=== PATIENT | female | born 1995 | race Caucasian/White ===

== ENCOUNTER 2017-05-30 16:05 | Emergency (ER) | payer MEDICAID, OTHER ==
[~2017-05-30] VITALS: Wt 60.5 kg
[2017-05-30] MEDS ORDERED: IBUP800T25 PO (16:26)
--- NOTE | 2017-05-30 16:32 | ERD ---
ER Documentation Chief Complaint Date/Time DATE: 05/30/17 TIME: 16:29 Chief Complaint BILAT RING FINGER INJURY HPI 22-year-old female who presents with a complete avulsion of a left ring finger fingernail. The patient has acrylic nails. She states that she was involved in a "incident" yesterday. The patient had complete avulsion and has moderate throbbing pain to the left ring finger. She also notes some mild pain but an intact nail to the right ring finger. ROS All systems reviewed and are negative except as per history of present illness. Medications Home Meds Active Scripts Ibuprofen* (Motrin*) 800 Mg Tab, 800 MG PO Q6H Y for PAIN AND OR ELEVATED TEMP, #30 TAB Prov:TOMASA MERINO MD 05/30/17 Allergies Allergies: Coded Allergies: No Known Drug Allergies (Verified Allergy, Unknown, 05/30/17) FmHx Family History: No diabetes Physical Exam Vitals Vital Signs Date Time Temp Pulse Resp B/P Pulse Ox O2 Delivery O2 Flow Rate FiO2 05/30/17 16:13 97.5 91 18 106/79 98 Physical Exam General: Well developed, well nourished, no acute distress Head: Normocephalic, atraumatic. Eyes: EOM intact ENT: Moist mucous membranes Neck: Full ROM Respiratory: No respiratory distress Cardiovascular: Good capillary refil Abdominal: Nondistended : Deferred MSK: Complete avulsion of the left fourth fingernail. The finger nail bed is clean dry and intact with dry blood, no evidence of infection no drainage or discharge, the nailbed matrix appears to be intact no retained foreign body. The right ring finger, fourth finger, has an intact acrylic nail, no laxity, no subungual hematoma. Neurologic: Alert and oriented, moving all extremities, normal speech, steady gait Skin: No rash Psych: Normal mood Procedures/MDM The patient has evidence of a complete nail avulsion of the left fourth fingernail. At this time there is no indication for intervention. I advised the patient that the nail matrix appears to be intact I cannot guarantee that a fingernail grows back. I discussed removing the acrylic nail at a nail salon on the right hand and caring for the nail. No evidence of complications or infections. No evidence of fractures. No indication for imaging. Outpatient follow-up is appropriate. Hand specialist referral provided though not as severely indicated. Expectant management, wound care discussed with the patient. We discussed follow up with the patient's primary care doctor within 24 to 48 hours as needed. We also discussed return to the emergency room for worsening symptoms or worsening condition. Outpatient referral: [None required] Discharge Medications: Motrin Departure Diagnosis: Primary Impression: Fingernail avulsion, complete Encounter type: initial encounter Qualified Code: S61.309A - Fingernail avulsion, complete, initial encounter Condition: Stable Patient Instructions: Nail Avulsion, Complete Referrals: [facility] YOU HAVE RECEIVED A MEDICAL SCREENING EXAM AND THE RESULTS INDICATE THAT YOU DO NOT HAVE A CONDITION THAT REQUIRES URGENT TREATMENT IN THE EMERGENCY DEPARTMENT. FURTHER EVALUATION AND TREATMENT OF YOUR CONDITION CAN WAIT UNTIL YOU ARE SEEN IN YOUR DOCTORS OFFICE WITHIN THE NEXT 1-2 DAYS. IT IS YOUR RESPONSIBILITY TO MAKE AN APPOINTMENT FOR FOLOW-UP CARE. IF YOU HAVE A PRIMARY DOCTOR --you should call your primary doctor and schedule an appointment IF YOU DO NOT HAVE A PRIMARY DOCTOR YOU CAN CALL OUR PHYSICIAN REFERRAL HOTLINE AT IF YOU CAN NOT AFFORD TO SEE A PHYSICIAN YOU CAN CHOSE FROM THE FOLLOWING [facility] [address] [facility]. [facility] [address] [facility]. [facility] [address] [facility] [facility] [address] [facility]. [facility] [address] [facility]. [facility]. [address] [facility]. [facility] YOU HAVE RECEIVED A MEDICAL SCREENING EXAM AND THE RESULTS INDICATE THAT YOU DO NOT HAVE A CONDITION THAT REQUIRES URGENT TREATMENT IN THE EMERGENCY DEPARTMENT. FURTHER EVALUATION AND TREATMENT OF YOUR CONDITION CAN WAIT UNTIL YOU ARE SEEN IN YOUR DOCTORS OFFICE WITHIN THE NEXT 1-2 DAYS. IT IS YOUR RESPONSIBILITY TO MAKE AN APPOINTMENT FOR FOLOW-UP CARE. IF YOU HAVE A PRIMARY DOCTOR --you should call your primary doctor and schedule and appointment IF YOU DO NOT HAVE A PRIMARY DOCTOR YOU CAN CALL OUR PHYSICIAN REFERRAL HOTLINE AT . IF YOU CAN NOT AFFORD TO SEE A PHYSICIAN YOU CAN CHOSE FROM THE FOLLOWING [facility]: [facility] [address] [place] [address] [facility] [address] [place] [address] [facility] + [facility] [address] [place] [address] [facility] Additional Instructions: Call your primary care doctor TOMORROW for an appointment during the next 1 WEEK.Tell the secretary board of commissioners that you were referred from this facility.See the doctor sooner or return here if your condition worsens before your appointment time. TOMASA MERINO MD May 30, 2017 16:31
== END 2017-05-30 17:53 | disposition home or self-care (01) ==
LOC: FTE 16:05
DX: S61.205A Unspecified open wound of left ring finger without damage to nail, initial encounter (principal); X58.XXXA Exposure to other specified factors, initial encounter; Y92.9 Unspecified place or not applicable
CPT/HCPCS: 99283